=== PATIENT | female | born 1990 | race African-American/Black ===

== ENCOUNTER 2017-01-07 15:46 | Emergency (ER) | payer OTHER ==
[~2017-01-07] VITALS: Ht 170.2 cm; Wt 85.0 kg
[~2017-01-07 15:46] MED LIST: BACT800T5 PO; FERR140T PO; TRAM100T19 PO
[2017-01-07 15:47] VITALS: BP 132/89; PULSE 72; RESP 20; TEMP 97.9; O2SAT 100
--- NOTE | 2017-01-07 15:57 | PD ---
Physical Exam Time Seen by Provider: 15:55 Narrative 26yo F c/o possible insect bite to left thigh x 5 days. +itchiness to area. Says area has grown in size. Redness to area. Denies fever, vomiting. Patient seen in triage. VS reviewed. Awaiting bed placement. Data Data Last Documented VS Vital Signs Date Time Temp Pulse Resp B/P Pulse Ox O2 Delivery O2 Flow Rate FiO2 01/07/17 15:47 97.9 72 20 132/89 100 Room Air MDM Supervised Visit with APPLE: Delmy Flores Jan 07, 2017 15:57
[2017-01-07] MEDS ORDERED: CORTLOT TOPICAL (16:20)
--- NOTE | 2017-01-07 16:24 | PD ---
HPI Chief Complaint: Skin Problem Time Seen by Provider: 16:20 Travel History International Travel<30 days: No Contact w/Intl Traveler<30days: No Traveled to known affect area: No History of Present Illness HPI 26-year-old female presents to the emergency department for evaluation of pruritic skin lesion to left thigh that began 2 days ago. Patient states that 5 days ago she had a small bump on her anterior left thigh. States that it looked like a pimple and it was itchy so she scratched it. States that over the last 2 days she has noticed that the area has gotten larger and more pruritic. States that she thinks it may have been an insect bite. She denies any pain, redness, fever, chills, discharge or drainage. Aggravated by scratching. Denies any alleviating factors. No other complaints. PFSH Past Medical History Anemia: Yes Diminished Hearing: No Headaches: Yes ?: Not : 1 Para: 0 Social History Alcohol Use: Yes (occ) Tobacco Use: Yes (1-2 cig per day ) Substance Use: Yes (marijuana occasionally) Allergies-Medications (Allergen,Severity, Reaction): Coded Allergies: No Known Allergies (Verified , 04/21/15) Reported Meds & Prescriptions Reported Meds & Active Scripts Active Bactrim DS (Sulfamethoxazole-Trimethoprim DS) 1 Tab Tab 1 Tab PO BID Ferrous Sulfate 140 Mg Tab 140 Mg PO BID Reported Tramadol HCl ER (Tramadol HCl) 100 Mg Tab 100 Mg PO HS PRN Review of Systems Except as stated in HPI: all other systems reviewed are Neg Physical Exam Narrative GENERAL: Well-nourished and well-developed pleasant female patient in no acute distress who is nontoxic appearing. SKIN: Warm and dry. 1.5 cm in diameter circular erythematous skin lesion. No surrounding erythema or warmth. No tenderness to palpation. No fluctuance. No discharge or drainage. HEAD: Normocephalic and atraumatic. EYES: No injection, drainage, or hyphema noted. PERRLA. EOMI. ENT: No nasal drainage noted. Oropharynx is clear. NECK: Supple and the trachea is midline. CARDIOVASCULAR: Regular rate and rhythm. RESPIRATORY: Breath sounds are equal bilaterally with no accessory muscle use, wheezing, rhonchi, or crackles. NEUROLOGICAL: Awake, alert, and oriented. Normal speech and gait. Cranial nerves are grossly intact. Data Data Last Documented VS Vital Signs Date Time Temp Pulse Resp B/P Pulse Ox O2 Delivery O2 Flow Rate FiO2 01/07/17 15:47 97.9 72 20 132/89 100 Room Air MDM Medical Decision Making Medical Screen Exam Complete: Yes Emergency Medical Condition: Yes Differential Diagnosis Allergic reaction versus insect bite versus eczema Narrative Course 26-year-old female presents to the emergency department for evaluation of pruritic skin lesion to the left anterior thigh. Patient is afebrile, vital signs are stable. No signs of infection. Patient will be prescribed hydrocortisone 1% topical cream. Instructed not to scratch the lesion. Advised to follow-up if the lesion gets larger or painful. Patient verbalizes understanding and agreement with treatment plan. Diagnosis Primary Impression: Skin lesion of left leg Referrals: Primary Care Physician Patient Instructions: General Instructions Additional Instructions: Do not scratch. Use cream as prescribed. Follow-up with your Primary Care Physician. Return to the ED for any acute worsening of symptoms. Med/Other Pt SpecificInfo: Prescription(s) given Scripts Hydrocortisone (Topical) (Cortizone-10 Eczema)1 % Lot0.5 Gm TOPICAL QID #28 GM Ref 0 Apply thin layer to affected area 2-4 x per day as needed for itching. Prov:Efren Schultz MD 01/07/17 Disposition: 01 DISCHARGE HOME Condition: Stable Delmy Lovelace Jan 07, 2017 16:24
== END 2017-01-07 16:49 | disposition home or self-care (01) ==
LOC: NEPK 15:46
DX: L98.9 Disorder of the skin and subcutaneous tissue, unspecified (principal); D64.9 Anemia, unspecified; Z79.899 Other long term (current) drug therapy
CPT/HCPCS: 99282

== ENCOUNTER 2017-04-09 13:08 | Emergency (ER) | payer OTHER ==
[~2017-04-09] VITALS: Ht 170.2 cm; Wt 90.0 kg
[~2017-04-09 13:08] MED LIST changes: +CORTLOT TOPICAL
--- NOTE | 2017-04-09 14:07 | PD ---
HPI Chief Complaint: Coffee Maker Problem/Complaint Time Seen by Provider: 13:57 Travel History International Travel<30 days: No Contact w/Intl Traveler<30days: No Traveled to known affect area: No History of Present Illness HPI 27 year-old female presents to emergency department for evaluation of lower abdominal pain and vaginal bleeding. Patient states she missed her menstrual cycle that was due March 25. She does have unprotected intercourse and is concerned she may be . Pain is a crampy, constant, intermittently stabbing lower abdominal pain. Denies fever or chills. Mild nausea without vomiting. No other symptoms to report. PFSH Past Medical History Anemia: Yes Diminished Hearing: No Headaches: Yes Immunizations Current: No : 1 Para: 0 Social History Alcohol Use: Yes (occ) Tobacco Use: Yes (1-2 cig per day ) Substance Use: Yes (marijuana occasionally) Allergies-Medications (Allergen,Severity, Reaction): Coded Allergies: No Known Allergies (Verified , 04/09/17) Reported Meds & Prescriptions Reported Meds & Active Scripts Active Keflex (Cephalexin) 500 Mg Cap 500 Mg PO Q12H 7 Days Cortizone-10 Eczema (Hydrocortisone (Topical)) 1 % Lot 0.5 Gm TOPICAL QID Apply thin layer to affected area 2-4 x per day as needed for itching. Bactrim DS (Sulfamethoxazole-Trimethoprim DS) 1 Tab Tab 1 Tab PO BID Ferrous Sulfate 140 Mg Tab 140 Mg PO BID Reported Tramadol HCl ER (Tramadol HCl) 100 Mg Tab 100 Mg PO HS PRN Review of Systems Except as stated in HPI: all other systems reviewed are Neg Physical Exam Narrative GENERAL: Well-nourished, well-developed female patient, in no acute distress SKIN: Focused skin assessment warm/dry. HEAD: Normocephalic. EYES: No scleral icterus. No injection or drainage. NECK: Supple, trachea midline. No JVD or lymphadenopathy. CARDIOVASCULAR: Regular rate and rhythm without murmurs, gallops, or rubs. RESPIRATORY: Breath sounds equal bilaterally. No accessory muscle use. GASTROINTESTINAL: Abdomen soft, non-tender, nondistended. Supra pubic tenderness to palpation GENITOURINARY: Normal external genitalia without lesions or erythema. Vaginal vault amount of dark blood in a mucocele drainage.. Cervical os open a fingertip with same discharge.. No cervical motion tenderness. Uterus nontender and nonenlarged. Bilateral adnexa nontender without masses. MUSCULOSKELETAL: No cyanosis, or edema. BACK: Nontender without obvious deformity. No CVA tenderness. Data Data Last Documented VS Vital Signs Date Time Temp Pulse Resp B/P (MAP) Pulse Ox O2 Delivery O2 Flow Rate FiO2 04/09/17 13:56 16 Orders Orders Urinalysis - C+S If Indicated (04/09/17 14:06) Ed Urine Pregnancytest Poc (04/09/17 14:06) Gc And Chlamydia Pcr (04/09/17 14:06) Wet Prep Profile (04/09/17 14:06) Beta Hcg (Quant/Titer) (04/09/17 14:23) Urine Culture (04/09/17 14:15) Us Pelvis (Ques Pr/Ect)W Trans (04/09/17 ) Ceftriaxone Inj (Rocephin Inj) (04/09/17 18:00) Lidocaine 1% Inj (50 Ml) (Xylocaine 1% I (04/09/17 18:00) Azithromycin (Zithromax) (04/09/17 18:00) Labs Laboratory Tests Test 04/09/17 14:15 04/09/17 14:25 04/09/17 14:30 Urine Color YELLOW Urine Turbidity HAZY Urine pH 5.5 Urine Specific [place] 1.032 Urine Protein TRACE mg/dL Urine Glucose (UA) NEG mg/dL Urine Ketones NEG mg/dL Urine Occult Blood TRACE Urine Nitrite NEG Urine Bilirubin NEG Urine Urobilinogen LESS THAN 2.0 MG/DL Urine Leukocyte Esterase LARGE Urine RBC 4 /hpf Urine WBC 37 /hpf Urine Squamous Epithelial Cells 2 /hpf Urine Bacteria OCC /hpf Urine Hyaline Casts 1 /lpf Urine Mucus MOD /lpf Microscopic Urinalysis Comment CULTURE INDICATED Clue Cells (Wet Prep) NONE SEEN Vaginal Trichomonas (Wet Prep) PRESENT Vaginal Yeast (Wet Prep) NONE SEEN Chlamydia trachomatis DNA (PCR) DETECTED Neisseria gonorrhoeae DNA (PCR) NOT DETECTED Human Chorionic Gonadotropin, Quant 6049 MIU/ML MDM Medical Decision Making Medical Screen Exam Complete: Yes Emergency Medical Condition: Yes Medical Record Reviewed: Yes Differential Diagnosis STD versus UTI versus threatened versus menses Narrative Course 27 year-old female presents to emergency department for evaluation of her abdominal cramping, vaginal bleeding, and possible . Urine is positive. Ultrasound confirms a likely intrauterine . Prep is positive for trichomonas. I discussed the patient with the [facility] hospitalist who advised treating with Flagyl after the first trimester. Patient also tested positive for chlamydia. She is treated for this in emergency department. She is counseled on safe sex. Stressed the importance of following up with [facility] and her partner's being treated. This is also a threatened . I have advised pelvic rest. She verbalizes understanding and agrees to return immediately with any acute worsening symptoms. Diagnosis Primary Impression: Chlamydia Additional Impressions: Infection due to trichomonas vaginalis IUP (intrauterine ), incidental Threatened UTI (urinary tract infection) Qualified Codes: N30.01 - Acute cystitis with hematuria Referrals: [facility] Patient Instructions: Chlamydia (ED), First Trimester (ED), General Instructions, Threatened Miscarriage (ED), Trichomoniasis (ED) Additional Instructions: Follow-up with [facility] You have not been treated for trichomonas. This needs to be treated after your first trimester You have been treated for gonorrhea and chlamydia All partners will need to be treated as well Return immediately with any acute worsening of symptoms Med/Other Pt SpecificInfo: Prescription(s) given Scripts Cephalexin (Keflex) 500 Mg Cap 500 MG PO Q12H for Infection for 7 Days, #14 CAP 0 Refills Prov: Wandy Alicea 04/09/17 Disposition: 01 DISCHARGE HOME Condition: Stable Wandy Alicea Apr 09, 2017 14:07
[2017-04-09 14:36] LABS: BACTERIA, URINE OCC /hpf; BLOOD, URINE TRACE (NEG); COMMENT (UR) CULTURE INDICATED; CULTURE IF INDICATED CULTURE INDICATED; GLUCOSE,URINE NEG (NEG); HYALINE CAST, URINE 1 /lpf (RARE); KETONE, URINE NEG (NEG); MUCUS URINE MOD /lpf (OCC); NITRITE,URINE NEG (NEG); PH, URINE 5.5 (5.0-8.5); SQUAMOUS EPITHELIAL CELL URINE 2 /hpf (0-5); URINE COLOR YELLOW (YELLW/STRAW)
[2017-04-09 15:15] LABS: BETA HCG QUANT 6049 MIU/ML (0-5)
--- NOTE | 2017-04-09 15:26 | RADRPT ---
EXAM DATE/TIME: 04/09/2017 14:25 [place] COMPARISON: No previous studies available for comparison. INDICATIONS : Bleeding. LAB(S): Beta-hC MEDICAL HISTORY : . Anemia. Substance use. SURGICAL HISTORY : None. ENCOUNTER: Initial ACUITY: 1 day PAIN SCORE: 0/10 LOCATION: Bilateral pelvis MEASUREMENTS: UTERUS: 9.2 x 6.8 x 5.1 cm ENDOMETRIAL STRIPE: 14 mm RIGHT OVARY: 4.3 x 2.4 x 2.1 cm LEFT OVARY: 3.7 x 2.5 x 2.0 cm FREE FLUID: No CROWN RUMP LENGTH: 0.1 cm = UTO WKS DAYS FINDINGS: UTERUS: There is a tiny anechoic area in the endometrium which is likely gestational sac measuring about 9 mm which is too small to date. RIGHT OVARY: Ovary contains no mass or significant cystic lesion. LEFT OVARY: Ovary contains no mass or significant cystic lesion. MISCELLANEOUS: No free fluid. CONCLUSION: Likely early IUP Elvin Rey MD on April 09, 2017 at 15:23 Board Certified Radiologist. This report was verified electronically.
[2017-04-09 17:44] LABS: CHLAMYDIA PCR DETECTED (NOT DETECT); NEISSERIA PCR NOT DETECTED (NOT DETECT)
[2017-04-09] MEDS ORDERED: CEPH-460 PO (17:57)
[2017-04-09] MEDS ORDERED: LIDOCAINE HCL 1% 50 ML VIAL XX ONE (18:00)
[2017-04-09] MEDS ORDERED: cefTRIAXone 250 MG VIAL IM ONE (18:00)
[2017-04-09] MEDS ORDERED: AZITHROMYCIN 250 MG TAB PO ONE (18:00)
[2017-04-12] MEDS ORDERED: METR500T10 PO (11:10)
== END 2017-04-09 18:19 | disposition home or self-care (01) ==
LOC: NEPD 13:08
DX: O98.311 Other infections with a predominantly sexual mode of transmission complicating pregnancy, first trimester (principal); A56.8 Sexually transmitted chlamydial infection of other sites; A59.01 Trichomonal vulvovaginitis; O20.0 Threatened abortion; O23.11 Infections of bladder in pregnancy, first trimester; B96.20 Unspecified Escherichia coli [E. coli] as the cause of diseases classified elsewhere; N30.01 Acute cystitis with hematuria; Z3A.00 Weeks of gestation of pregnancy not specified
CPT/HCPCS: 76700; 76817; 81001; 84702; 84703; 87077; 87086; 87186; 87210; 87491; 87591; 96372; 99285; J0696

== ENCOUNTER 2017-12-04 11:41 | Emergency (ER) | payer MEDICAID, OTHER ==
[~2017-12-04] VITALS: Ht 170.2 cm; Wt 80.0 kg
[2017-12-04 11:50] VITALS: BP 141/85; PULSE 93; RESP 16; TEMP 98.6; O2SAT 100
[2017-12-04 13:10] VITALS: BP 131/71; PULSE 87; RESP 16; O2SAT 97
[2017-12-04 14:22] LABS: AUTOMATED NEUTROPHIL # 5.1 TH/MM3 (1.8-7.7); BASOPHIL % 0.7 % (0.0-2.0); EOSINOPHIL # 0.1 TH/MM3 (0-0.4); EOSINOPHIL % 0.8 % (0.0-4.0); HEMATOCRIT 36.6 % (35.0-46.0); HEMOGLOBIN 12.2 GM/DL (11.6-15.3); LYMPH % 13.2 % (9.0-44.0); LYMPHOCYTE # 0.9 TH/MM3 (1.0-4.8); MEAN CELL VOLUME 82.5 FL (80.0-100.0); MEAN CORPUSCULAR HEMOGLOBIN 27.6 PG (27.0-34.0); MEAN CORPUSCULAR HGB CONC 33.5 % (32.0-36.0); MEAN PLATELET VOLUME 9.8 FL (7.0-11.0); MONOCYTE # 0.6 TH/MM3 (0-0.9); NEUT % 76.3 % (16.0-70.0); PLATELET COUNT 179 TH/MM3 (150-450); RED BLOOD COUNT 4.43 MIL/MM3 (4.00-5.30); RED CELL DISTRIBUTION WIDTH 17.9 % (11.6-17.2); WHITE BLOOD COUNT 6.7 TH/MM3 (4.0-11.0)
[2017-12-04 14:25] LABS: BACTERIA, URINE MOD /hpf; BILIRUBIN, URINE NEG (NEG); BLOOD, URINE SMALL (NEG); GLUCOSE,URINE NEG (NEG); KETONE, URINE NEG (NEG); MUCUS URINE FEW /lpf (OCC); NITRITE,URINE NEG (NEG); PH, URINE 6.5 (5.0-8.5); SQUAMOUS EPITHELIAL CELL URINE 8 /hpf (0-5); URINE COLOR YELLOW (YELLW/STRAW); URINE LEUKOCYTE ESTERASE SMALL (NEG)
[2017-12-04 14:39] LABS: ALBUMIN 3.1 GM/DL (3.4-5.0); ALT (GPT) 13 U/L (10-53); AST (GOT) 9 U/L (15-37); BICARBONATE 21.6 MEQ/L (21.0-32.0); BLOOD UREA NITROGEN 6 MG/DL (7-18); CALCIUM 8.7 MG/DL (8.5-10.1); CHLORIDE 105 MEQ/L (98-107); CREATININE 0.61 MG/DL (0.50-1.00); GLOMERULAR FILTRATION RATE 140 ML/MIN (>89); GLUCOSE,RANDOM 93 MG/DL (74-106); SODIUM (NA) 138 MEQ/L (136-145)
[2017-12-04 14:50] VITALS: BP 119/72; PULSE 76; RESP 18; O2SAT 99
[2017-12-04 14:55] LABS: ALKALINE PHOSPHATASE 67 U/L (45-117); TOTAL BILIRUBIN ADULT 0.2 MG/DL (0.2-1.0); TOTAL PROTEIN 7.4 GM/DL (6.4-8.2)
[2017-12-04] MEDS ORDERED: MACR100C2 PO (16:12)
--- NOTE | 2017-12-04 16:12 | PD ---
HPI Chief Complaint: Related Problem Time Seen by Provider: 12:59 Travel History International Travel<30 days: No Contact w/Intl Traveler<30days: No Traveled to known affect area: No History of Present Illness HPI Patient is a 27-year-old female who comes in complaining of vaginal bleeding. Recently found out that she was . She says that she does not remember when her last menstrual cycle was, either August or September. She says that yesterday she started having some spotting and then noticed passage of a few clots. She did have a miscarriage in April. She has been 3 other times. She says she has some slight pain to her lower abdomen. She denies nausea or vomiting. She denies fever chills. Severity is mild. [facility] Past Medical History Medical History: Denies Significant Hx Anemia: Yes Diminished Hearing: No Headaches: Yes Immunizations Current: No ?: : 4 Para: 2 Dilation and Curettage (D&C): Yes (April 2017) Past Surgical History Surgical History: No Previous Surgery Social History Alcohol Use: No (occ) Tobacco Use: Yes (1-2 cig per day ) Substance Use: Yes (marijuana occasionally) Allergies-Medications (Allergen,Severity, Reaction): Coded Allergies: No Known Allergies (Verified , 04/20/17) Reported Meds & Prescriptions Reported Meds & Active Scripts Active No Active Prescriptions or Reported Medications Review of Systems Except as stated in HPI: all other systems reviewed are Neg General / Constitutional: No: Fever, Chills HENT: No: Headaches, Lightheadedness Cardiovascular: No: Chest Pain or Discomfort Respiratory: No: Shortness of Breath Gastrointestinal: No: Nausea, Vomiting Genitourinary: Positive: Vaginal Bleeding Musculoskeletal: No: Myalgias Skin: No Rash, No Change in Pigmentation Neurologic: No: Weakness, Dizziness Physical Exam Narrative GENERAL: Awake and alert, in no acute distress. SKIN: Focused skin assessment warm/dry. No wounds or signs HEAD: Atraumatic. Normocephalic. EYES: Pupils equal and round. No scleral icterus. ENT: Mucous membranes pink and moist. NECK: Trachea midline. No JVD. CARDIOVASCULAR: Regular rate and rhythm. No murmur appreciated. RESPIRATORY: No accessory muscle use. Clear to auscultation. Breath sounds equal bilaterally. GASTROINTESTINAL: Abdomen soft, non-tender, nondistended. : Exam performed in the presence of a nurse. Os is closed. No active bleeding or discharge. MUSCULOSKELETAL: No obvious deformities. No clubbing. No cyanosis. No edema. NEUROLOGICAL: Awake and alert. No obvious cranial nerve deficits. Motor grossly within normal limits. Normal speech. PSYCHIATRIC: Appropriate mood and affect; insight and judgment normal. Data Data Last Documented VS Vital Signs Date Time Temp Pulse Resp B/P (MAP) Pulse Ox O2 Delivery O2 Flow Rate FiO2 12/04/17 14:50 76 18 119/72 (88) 99 Room Air 12/04/17 11:50 98.6 Orders Orders Iv Access Insert/Monitor (12/04/17 13:12) Complete Blood Count With Diff (12/04/17 13:12) Comprehensive Metabolic Panel (12/04/17 13:12) Type And Screen (12/04/17 13:12) Urinalysis - C+S If Indicated (12/04/17 13:12) Beta Hcg (Quant/Titer) (12/04/17 13:12) Ed Poc Ultrasound (12/04/17 ) Urine Culture (12/04/17 13:33) Labs Laboratory Tests Test 12/04/17 13:33 White Blood Count 6.7 TH/MM3 Red Blood Count 4.43 MIL/MM3 Hemoglobin 12.2 GM/DL Hematocrit 36.6 % Mean Corpuscular Volume 82.5 FL Mean Corpuscular Hemoglobin 27.6 PG Mean Corpuscular Hemoglobin Concent 33.5 % Red Cell Distribution Width 17.9 % Platelet Count 179 TH/MM3 Mean Platelet Volume 9.8 FL Neutrophils (%) (Auto) 76.3 % Lymphocytes (%) (Auto) 13.2 % Monocytes (%) (Auto) 9.0 % Eosinophils (%) (Auto) 0.8 % Basophils (%) (Auto) 0.7 % Neutrophils # (Auto) 5.1 TH/MM3 Lymphocytes # (Auto) 0.9 TH/MM3 Monocytes # (Auto) 0.6 TH/MM3 Eosinophils # (Auto) 0.1 TH/MM3 Basophils # (Auto) 0.0 TH/MM3 CBC Comment DIFF FINAL Differential Comment Urine Color YELLOW Urine Turbidity HAZY Urine pH 6.5 Urine Specific [place] 1.020 Urine Protein NEG mg/dL Urine Glucose (UA) NEG mg/dL Urine Ketones NEG mg/dL Urine Occult Blood SMALL Urine Nitrite NEG Urine Bilirubin NEG Urine Urobilinogen LESS THAN 2.0 MG/DL Urine Leukocyte Esterase SMALL Urine RBC 1 /hpf Urine WBC 4 /hpf Urine Squamous Epithelial Cells 8 /hpf Urine Bacteria MOD /hpf Urine Mucus FEW /lpf Microscopic Urinalysis Comment CULTURE INDICATED Blood Urea Nitrogen 6 MG/DL Creatinine 0.61 MG/DL Random Glucose 93 MG/DL Total Protein 7.4 GM/DL Albumin 3.1 GM/DL Calcium Level 8.7 MG/DL Alkaline Phosphatase 67 U/L Aspartate Amino Transf (AST/SGOT) 9 U/L Alanine Aminotransferase (ALT/SGPT) 13 U/L Total Bilirubin 0.2 MG/DL Sodium Level 138 MEQ/L Potassium Level 3.1 MEQ/L Chloride Level 105 MEQ/L Carbon Dioxide Level 21.6 MEQ/L Anion Gap 11 MEQ/L Estimat Glomerular Filtration Rate 140 ML/MIN Human Chorionic Gonadotropin, Quant 60702 MIU/ML MDM Medical Decision Making Medical Screen Exam Complete: Yes Emergency Medical Condition: Yes Medical Record Reviewed: Yes Differential Diagnosis Threatened miscarriage versus completed versus incomplete versus UTI Narrative Course Patient is a 27-year-old female who comes in complaining of bleeding during her . Exam shows no abdominal tenderness, there is no active bleeding at this time. IV established, labs sent. Patient is Rh+. Urinalysis is positive for UTI. Bedside ultrasound performed shows an IUP. Patient discharged with a prescription for Macrobid. Advised to follow-up with her OB. Advised return to the ED as needed for any worsening symptoms. Procedures Procedure Narrative Emergency Department Pelvic ultrasound was performed with patient consent. The curvilinear probe was used in the transverse and sagittal views within the suprapubic region revealing single intrauterine . heart rate was 162. No free fluid. Diagnosis Primary Impression: Threatened Patient Instructions: General Instructions, Threatened Miscarriage (ED), Urinary Tract Infection in (ED) Additional Instructions: Follow-up with your OB. Take all the antibiotics. Return to the ED as needed for any worsening symptoms. Scripts Nitrofurantoin Monohydrate Macrocrystals (Macrobid) 100 Mg Capsule 100 MG PO BID for Infection for 7 Days, #14 CAP 0 Refills Prov: Rosalie Randall MD 12/04/17 Disposition: DISCHARGE HOME Condition: Stable Rosalie Randall MD Dec 04, 2017 16:12
== END 2017-12-04 16:49 | disposition home or self-care (01) ==
LOC: NEPE 11:41
DX: O20.0 Threatened abortion (principal); O23.41 Unspecified infection of urinary tract in pregnancy, first trimester; O99.011 Anemia complicating pregnancy, first trimester; O99.331 Smoking (tobacco) complicating pregnancy, first trimester; F17.210 Nicotine dependence, cigarettes, uncomplicated; F12.90 Cannabis use, unspecified, uncomplicated
CPT/HCPCS: 80053; 81001; 84702; 85025; 86850; 86900; 86901; 87086; 99283

== ENCOUNTER 2018-06-16 17:35 | Inpatient (IN) ==
[~2018-06-16 17:35] MED LIST changes: -BACT800T5 PO; -CORTLOT TOPICAL; +Diphtheria/Tetanus/Pertussis Vaccine Inj 0.5 ML Syringe IM ONE; -FERR140T PO; +Measles/Mumps/Rubella Vaccine Inj 0.5 ML Vial SQ ONE; -TRAM100T19 PO
[2018-06-16] MEDS ORDERED: Sod Chloride 0.9% Inj 1,000 ML IV.CONT PRN (17:54)
[2018-06-16] MEDS ORDERED: Oxytocin 30 Units/500ml Premix 30 UNITS/500 ML BAG IV.SIG ONE (17:54)
[2018-06-16] MEDS ORDERED: Sodium Chlor 0.9% Inj 500 ML IV.SIG PRN (17:54)
[2018-06-16] MEDS ORDERED: fentaNYL Citrate Inj 100 MCG/2 ML Ampul IV.PUSH PRN ×2 (17:54)
[2018-06-16] MEDS ORDERED: Naloxone Inj 0.4 MG/ML Vial IV.PUSH PRN ×2 (17:54→19:28)
--- NOTE | 2018-06-16 17:57 | ED ---
History of Present Illness Primary Care Physician: NOT REQUIRED Chief Complaint: Contractions History of Present Illness: Ms. Chavez is a 28yo at 39/1 who presents for evaluation of contractions. She reports that she developed contractions early this morning that have become stronger and more frequent. She had a small amount of mucous loss at about 17:05 this evening, but no true loss of fluid. No vaginal bleeding. Good movement. She reports no difficulties during this or previous pregnancies. Previous pregnancies delivered at term. care with Dr. Sy. No PMH Not on any medications SX: 1 previous D/C FMH: HTN/DM in mother NKDA - Inpatient Certification I certify that the inpatient services were ordered in accordance with Medicare regulations governing the order. This includes certification that hospital inpatient services are reasonable and necessary and in the case of services not specified as inpatient-only under 42 CFR 419.22(n), that they are appropriately provided as inpatient services in accordance to with the 2-midnight benchmark under 43 CFR 412.3(e) Estimated Total Length of Stay (Days): 3 Plans for Post Hospital Care: Home Review of Systems Constitutional: Denies weakness Cardiovascular: Denies chest pain, Denies shortness of breath Respiratory: Denies cough Genitourinary: Denies abnormal vaginal bleeding Musculoskeletal: Reports back pain Medications and Allergies Active Medications: Active Medications Citric Acid/Sodium Citrate (Sodium Citrate/Citric Acid Liq) 30 ml PO FURNACE COOLER [facility] Stop: 06/20/18 17:59 Fentanyl Citrate (Fentanyl Inj) 50 mcg IV.PUSH Q1H PRN PRN Reason: Pain Scale 3 - 5 Fentanyl Citrate (Fentanyl Inj) 100 mcg IV.PUSH Q1H PRN PRN Reason: PAIN SCALE 6 TO 10 Lactated Ringer's (Lr 1000 Ml Inj) 1,000 mls @ 125 mls/hr IV.CONT .Q8H [facility] Lactated Ringer's (Lr 1000 Ml Inj) 1,000 mls @ 3,000 mls/hr IV.SIG UNSCH PRN PRN Reason: compromise or epidural Lidocaine HCl (Xylocaine 1% Inj) 0.1 ml I-DERMAL PRN PRN PRN Reason: For IV start Stop: 06/19/18 17:53 Mineral Oil (Muri-Lube Oil) 10 ml TOPICAL PRN PRN PRN Reason: PRN perineal massage Naloxone HCl (Narcan Inj) 0.1 mg IV.PUSH Q2M PRN PRN Reason: for opiate reversal Allergies Allergy/AdvReac Type Severity Reaction Status Date / Time No Known Allergies Allergy Verified 06/16/18 18:18 Exam Vital signs: Vital Signs 06/16/18 17:52 Pulse Rate 82 Respiratory Rate 18 Blood Pressure 134/75 - Constitutional no acute distress - Routine Respiratory Exam Absent: accessory muscle use, wheezes - Routine Cardiovascular Exam Present: RRR, S1, S2. Absent: murmur - Routine Abdominal Exam Comments: Gravid abdomen - Routine Exam Comments: FHT: Baseline 150bpm Moderate variability Reactive No decelerations Cervix: 5-6cm, Bulging, 80% - Routine Extremities Exam Present: edema (Trace bilateral). Absent: tenderness Results - Labs CBC & Chem 7: 06/16/18 18:00 Assessment and Plan - Diagnosis (1) 39 weeks gestation of Code(s): Z3A.39 - 39 weeks gestation of Status: Acute - Plan 28 yo at 39/1 in active labor Admit to labor and delivery Expectant management for anticipated Discharge Plan - Discharge Disposition Patient Disposition: 02 Transfer To [facility] - Discharge Condition Condition: Good - Physicians Team Primary Care Provider: NOT REQUIRED, Attending Provider: Drew Peterson
[2018-06-16] MEDS ORDERED: Citric Acid/Sodium Citrate Liq 30 ML UDC PO SCH (18:00)
--- NOTE | 2018-06-16 18:16 | P.HPOB ---
Chief Complaint: Contractions History of Present Illness: Ms. Chavez is a 28yo at 39/1 who presents for evaluation of contractions. She reports that she developed contractions early this morning that have become stronger and more frequent. She had a small amount of mucous loss at about 17:05 this evening, but no true loss of fluid. No vaginal bleeding. Good movement. She reports no difficulties during this or previous pregnancies. Previous pregnancies delivered at term. care with Dr. Sy. No PMH Not on any medications SX: 1 previous D/C FMH: HTN/DM in mother NKDA - Inpatient Certification I certify that the inpatient services were ordered in accordance with Medicare regulations governing the order. This includes certification that hospital inpatient services are reasonable and necessary and in the case of services not specified as inpatient-only under 42 CFR 419.22(n), that they are appropriately provided as inpatient services in accordance to with the 2-midnight benchmark under 43 CFR 412.3(e) Estimated Total Length of Stay (Days): 3 Plans for Post Hospital Care: Home Review of Systems Constitutional: Denies weakness Cardiovascular: Denies chest pain, Denies shortness of breath Respiratory: Denies cough Genitourinary: Denies abnormal vaginal bleeding Musculoskeletal: Reports back pain Medications and Allergies Active Medications: Active Medications Citric Acid/Sodium Citrate (Sodium Citrate/Citric Acid Liq) 30 ml PO LEATHER LACER [facility] Stop: 06/20/18 17:59 Fentanyl Citrate (Fentanyl Inj) 50 mcg IV.PUSH Q1H PRN PRN Reason: Pain Scale 3 - 5 Fentanyl Citrate (Fentanyl Inj) 100 mcg IV.PUSH Q1H PRN PRN Reason: PAIN SCALE 6 TO 10 Lactated Ringer's (Lr 1000 Ml Inj) 1,000 mls @ 125 mls/hr IV.CONT .Q8H [facility] Lactated Ringer's (Lr 1000 Ml Inj) 1,000 mls @ 3,000 mls/hr IV.SIG UNSCH PRN PRN Reason: compromise or epidural Lidocaine HCl (Xylocaine 1% Inj) 0.1 ml I-DERMAL PRN PRN PRN Reason: For IV start Stop: 06/19/18 17:53 Mineral Oil (Muri-Lube Oil) 10 ml TOPICAL PRN PRN PRN Reason: PRN perineal massage Naloxone HCl (Narcan Inj) 0.1 mg IV.PUSH Q2M PRN PRN Reason: for opiate reversal Allergies Allergy/AdvReac Type Severity Reaction Status Date / Time No Known Allergies Allergy Verified 06/16/18 18:18 Exam Vital signs: Vital Signs 06/16/18 17:52 Pulse Rate 82 Respiratory Rate 18 Blood Pressure 134/75 - Constitutional no acute distress - Routine Respiratory Exam Absent: accessory muscle use, wheezes - Routine Cardiovascular Exam Present: RRR, S1, S2. Absent: murmur - Routine Abdominal Exam Comments: Gravid abdomen - Routine Exam Comments: FHT: Baseline 150bpm Moderate variability Reactive No decelerations Cervix: 5-6cm, Bulging, 80% - Routine Extremities Exam Present: edema (Trace bilateral). Absent: tenderness Results - Labs CBC & Chem 7: 06/16/18 18:00 Assessment and Plan - Diagnosis (1) 39 weeks gestation of Code(s): Z3A.39 - 39 weeks gestation of Status: Acute - Plan 28 yo at 39/1 in active labor Admit to labor and delivery Expectant management for anticipated Discharge Plan - Discharge Disposition Patient Disposition: 02 Transfer To [facility] - Discharge Condition Condition: Good - Physicians Team Primary Care Provider: NOT REQUIRED, Attending Provider: Drew Peterson
[2018-06-16 18:21] LABS: Baso # (Auto) 0.1 th/mm3 (0.0-0.2); Eos # (Auto) 0.2 th/mm3 (0.0-0.4); Eos % (Auto) 1.7 % (0.0-4.0); Hematocrit 38.3 % (35.0-46.0); Hemoglobin 12.7 gm/dL (11.6-15.3); Lymph # (Auto) 1.9 th/mm3 (1.0-4.8); Lymph % (Auto) 19.6 % (9.0-44.0); Mean Corpuscular HGB Conc 33.2 % (32.0-36.0); Mean Corpuscular Hemoglobin 27.2 pg (27.0-34.0); Mean Corpuscular Volume 81.9 fL (80.0-100.0); Mean Platelet Volume 10.9 fL (7.0-11.0); Mono # (Auto) 0.9 th/mm3 (0.0-0.9); Mono % (Auto) 9.3 % (0.0-8.0); Neut # (Auto) 6.8 th/mm3 (1.8-7.7); Neut % (Auto) 68.4 % (16.0-70.0); Platelet Count 147 th/mm3 (150-450); Red Blood Count 4.68 mil/mm3 (4.00-5.30); White Blood Count 9.9 th/mm3 (4.0-11.0)
--- NOTE | 2018-06-16 18:57 | P.OBLABOR ---
Subjective Interval history: Patient seated in bed. Feeling contractions. Objective Vital Signs: Vital Signs - 8 hr 06/16/18 17:52 Pulse Rate 82 Respiratory Rate 18 Blood Pressure 134/75 Objective: Pelvic Exam: Cervix: Midposition Dilatation: 8 cm Effacement: 80 Station: -2 Presentation: Vertex Membranes: Ruptured Contractions: Unable to family support coordinator on [place]/EFM. FHT's: Category: 1 Baseline: 120 Reactive: yes Variability: Moderate Decels: None. Assessment and Plan - Diagnosis (1) 39 weeks gestation of Code(s): Z3A.39 - 39 weeks gestation of Status: Acute - Plan 28 yo at 39/1 in active labor AROM: Meconium stained. Cervical check: 80/-2 EFM/toco: Reactive. Category 1. Anticipate .
--- NOTE | 2018-06-16 19:18 | P.OBDELI ---
Weeks Gestation: 39 Patient Started Active Labor: Yes Active Labor Start Date: 06/16/18 Medical Induction of Labor: No Artificial Rupture of Membrane: Yes Artificial ROM Date: 06/16/18 Artificial ROM Time: 18:40 Anesthesia: None Episiotomy: none Vaginal Delivery: Normal, Spontaneous Presentation: Occiput anterior Nuchal Cord: x1 Delayed Cord Clamping (45 sec): Yes Placenta: Spontaneous delivery, Intact Laceration: Vaginal (multiple superficial, hemostasis maintained.) Estimated blood loss (mL): 100 Male A Infant Delivery Date: 06/16/18 Infant Delivery Time: 19:02 Weight: 3.155 kg score (1 min): 9 score (5 min): 9 Additional Information: Delivered by Dr. Mai. Supervised by Dr. Peterson.
[2018-06-16] MEDS ORDERED: Oxytocin 30 Units/500ml Premix 30 UNITS/500 ML BAG IV.CONT PRN (19:28)
[2018-06-16] MEDS ORDERED: Acetaminophen 325 MG Tablet PO PRN (19:28)
[2018-06-16] MEDS ORDERED: Benzocaine 20% Top Spray 60 ML Can TOPICAL PRN (19:28)
[2018-06-16] MEDS ORDERED: Witch Hazel 50%/Glyderin 12.5% 40 Pad Jar RECTAL PRN (19:28)
[2018-06-16] MEDS: Senna/Docusate Sodium 8.6/50 MG Tablet PO SCH (21:12)
--- NOTE | 2018-06-17 07:46 | P.PNOB ---
Subjective Interval history: Patient is a 28-year-old G 4 P 3 delivered at 39 weeks and 1 days. Patient is day 1 after . Patient's pain is well-controlled. Patient reports eating and drinking without any nausea or vomiting. Patient reports minimal bleeding, similar to light period. Patient has not passed gas or had a bowel movements. Patient is walking without lower extremity pain or shortness of breath. Patient is bottle feeding. Unsure of which contraception option she would like to pursue at this time. BP 144/88, most recently with no reported history of HTN or Pre-eclampsia Objective Vital Signs/I&O: Vital Signs 06/16/18 17:52 06/16/18 19:15 06/16/18 19:30 Temperature Pulse Rate 82 Respiratory Rate 18 Blood Pressure 134/75 06/16/18 19:45 06/16/18 19:56 06/16/18 20:00 Temperature 98.1 F Pulse Rate 71 Respiratory Rate 18 18 Blood Pressure 136/86 06/16/18 20:01 06/16/18 20:17 06/16/18 20:31 Temperature Pulse Rate 75 74 73 Respiratory Rate Blood Pressure 128/80 141/76 H 139/79 06/16/18 20:46 06/16/18 20:50 06/16/18 21:07 Temperature 98.2 F Pulse Rate 74 68 Respiratory Rate 18 18 Blood Pressure 138/78 144/88 H Intake & Output 06/16/18 06/17/18 06/17/18 18:59 06:59 18:59 Weight 102.058 kg Other: Weight On Admission 102.058 kg Result Diagrams: 06/16/18 18:00 Objective Remarks: GENERAL: Well-nourished, well-developed patient. CARDIOVASCULAR: Regular rate and rhythm without murmurs, gallops, or rubs. RESPIRATORY: Breath sounds equal bilaterally. No accessory muscle use. ABDOMEN/GI: Abdomen soft, non-tender. Fundus: Firm, non-tender about 2 cm below umbilicus GENITOURINARY: Light to moderate bleeding. EXTREMITIES: No cyanosis or edema, non-tender, without signs of DVT. Medications and IVs: Active Medications Acetaminophen (Tylenol) 650 mg PO Q4H PRN PRN Reason: PAIN SCALE 1 TO 2 Al Hydroxide/Mg Hydroxide (Milk Of Magnesia Liq) 30 ml PO Q12H PRN PRN Reason: Mild Constipation Benzocaine (Americaine 20% [place]) 1 spray TOPICAL Q4H PRN PRN Reason: For Perineum Discomfort Last Admin: 06/16/18 21:28 Dose: 1 spray Oxytocin (Pitocin 30 Units/Ns 500 Ml Premix) 30 units in 500 mls @ 100 mls/hr IV.CONT UNSCH PRN PRN Reason: Heavy bleeding Ibuprofen (Motrin) 800 mg PO Q8H PRN PRN Reason: For Cramping Last Admin: 06/16/18 21:28 Dose: 800 mg Naloxone HCl (Narcan Inj) 0.1 mg IV.PUSH Q2M PRN PRN Reason: for opiate reversal Ondansetron HCl (Zofran Odt) 4 mg PO Q6H PRN PRN Reason: NAUSEA OR VOMITING Senna/Docusate Sodium (Jewell-Colace) 1 tab PO BID [facility] Last Admin: 06/16/18 21:12 Dose: Not Given Sennosides (Senokot) 17.2 mg PO Q12H PRN PRN Reason: Moderate Constipation Sodium Chloride (Ns Flush) 2 ml IV.FLUSH BID [facility] Last Admin: 06/16/18 21:12 Dose: Not Given Sodium Chloride (Ns Flush) 2 ml IV.FLUSH PRN PRN PRN Reason: FLUSH AFTER USING IV ACCESS Witch Angi/Glycerin (Tucks Pads) 1 applicatio RECTAL QID PRN PRN Reason: HEMORRHOIDS Last Admin: 06/16/18 21:29 Dose: 1 applicatio Assessment and Plan - Diagnosis (1) 39 weeks gestation of Code(s): Z3A.39 - 39 weeks gestation of Status: Acute - Plan Patient is a 28-year-old G 4 P 3 delivered at 39 weeks and 1 days. Patient is day 1 after . Patient was counseled to do 6 weeks of pelvic rest. Patient was counseled to follow up in 6 weeks. Patient requested follow-up. Unsure of contraception choice at this time. --AF --Continue to monitor BP and adjust management if it continues to climb --Continue routine care --Motrin and Acetaminophen when necessary for pain --Encourage OOB --Pelvic rest for 6 weeks will need follow-up appointment at that time. --Contraception: Unsure at this time --Anticipate discharge tomorrow DW Jhonatan Dalton
[2018-06-17] MEDS: Senna/Docusate Sodium 8.6/50 MG Tablet PO SCH ×2 (09:44→22:55)
[2018-06-17 20:40] VITALS: RESP 18
--- NOTE | 2018-06-18 08:54 | P.PNOB ---
Subjective Post day: 2 Interval history: Patient is a 28-year-old G 4 P3 delivered at 39 weeks and 1 days. Patient is day 2 after . Patient's pain is well-controlled. Patient reports eating and drinking without any nausea or vomiting. Patient reports minimal bleeding. Patient has passed gas but no bowel movements. Patient is walking without lower extremity pain or shortness of breath. Patient reports desire for contraception and formula-feeding. Objective Vital Signs/I&O: Vital Signs 06/17/18 20:00 Temperature 98.5 F Pulse Rate 81 Respiratory Rate 18 Blood Pressure 152/83 H Result Diagrams: 06/16/18 18:00 Objective Remarks: GENERAL: Well-nourished, well-developed patient. CARDIOVASCULAR: Regular rate and rhythm without murmurs, gallops, or rubs. RESPIRATORY: Breath sounds equal bilaterally. No accessory muscle use. ABDOMEN/GI: Abdomen soft, non-tender. Fundus: Firm, non-tender at umbilicus. GENITOURINARY: Light to moderate bleeding. EXTREMITIES: No cyanosis or edema, non-tender, without signs of DVT. Medications and IVs: Active Medications Acetaminophen (Tylenol) 650 mg PO Q4H PRN PRN Reason: PAIN SCALE 1 TO 2 Al Hydroxide/Mg Hydroxide (Milk Of Magnesia Liq) 30 ml PO Q12H PRN PRN Reason: Mild Constipation Benzocaine (Americaine 20% Top [place]) 1 spray TOPICAL Q4H PRN PRN Reason: For Perineum Discomfort Last Admin: 06/16/18 21:28 Dose: 1 spray Oxytocin (Pitocin 30 Units/Ns 500 Ml Premix) 30 units in 500 mls @ 100 mls/hr IV.CONT UNSCH PRN PRN Reason: Heavy bleeding Ibuprofen (Motrin) 800 mg PO Q8H PRN PRN Reason: For Cramping Last Admin: 06/17/18 19:08 Dose: 800 mg Naloxone HCl (Narcan Inj) 0.1 mg IV.PUSH Q2M PRN PRN Reason: for opiate reversal Ondansetron HCl (Zofran Odt) 4 mg PO Q6H PRN PRN Reason: NAUSEA OR VOMITING Senna/Docusate Sodium (Jewell-Colace) 1 tab PO BID [facility] Last Admin: 06/17/18 22:55 Dose: Not Given Sennosides (Senokot) 17.2 mg PO Q12H PRN PRN Reason: Moderate Constipation Sodium Chloride (Ns Flush) 2 ml IV.FLUSH BID [facility] Last Admin: 06/18/18 07:46 Dose: Not Given Sodium Chloride (Ns Flush) 2 ml IV.FLUSH PRN PRN PRN Reason: FLUSH AFTER USING IV ACCESS Witch Angi/Glycerin (Tucks Pads) 1 applicatio RECTAL QID PRN PRN Reason: HEMORRHOIDS Last Admin: 06/16/18 21:29 Dose: 1 applicatio Assessment and Plan - Diagnosis (1) Vaginal delivery Code(s): O80 - Encounter for full-term uncomplicated delivery Status: Acute - Plan Patient is a 28-year-old G 4 P 3 delivered at 39 weeks and 1 days. Patient is day 2 after . Patient was counseled to do 6 weeks of pelvic rest. Patient was counseled to follow up in 6 weeks. Patient requested follow-up. Unsure of contraception choice at this time. --Continue routine care --Motrin and Acetaminophen when necessary for pain --Encourage OOB --Pelvic rest for 6 weeks will need follow-up appointment at that time. --Contraception: Unsure at this time --BP last night 152/83 BP this morning 120/80 will repeat BP and consider procardia 30 mg if pressures continue to rise --Discharge home today DW Jhonatan Velázquez and Edmundo
[2018-06-18 09:12] VITALS: TEMP 98.3
[2018-06-18 09:42] VITALS: BP 126/75
[2018-06-18 09:43] VITALS: PULSE 79
[2018-06-18] MEDS: Senna/Docusate Sodium 8.6/50 MG Tablet PO SCH (09:55)
== END 2018-06-18 14:26 | disposition home or self-care (01) ==
LOC: HOBED 17:35 → H2E 17:55 → H1EA 21:02
PROVIDERS: ADMIT Obstetrics & Gynecology Maternal & Fetal Medicine; ATTEND Obstetrics & Gynecology Maternal & Fetal Medicine